=== PATIENT | female | born 1950 ===

== ENCOUNTER 2021-10-17 07:26 | Day surgery (SDC) | payer OTHER ==
[~2021-10-17 07:26] MED LIST: ACTOS15 MG PO; COZAAR50 MG PO; CRESTOR40 MG PO; GLIPIZIDE XL2.5 MG; LASIX20 MG PO; PLAVIX75 MG PO; SYNTHROID88 MCG PO
[2021-10-17] MEDS ORDERED: PERCOCET 5-3251 EACH PO (12:37)
== END 2021-10-17 16:20 | disposition home or self-care (01) ==
LOC: CIR.AMB 07:26
PROVIDERS: ATTEND Surgery
DX: C73 Malignant neoplasm of thyroid gland (principal); Z20.822 Contact with and (suspected) exposure to COVID-19